=== PATIENT | female | born 1975 | race Hispanic/Latino ===

== ENCOUNTER 2021-01-28 17:25 | Outpatient (CLI) | payer BC | END 2021-01-28 17:26 | disposition home or self-care (01) | LOC: MADRAD 17:25 | PROVIDERS: ATTEND Family Medicine | DX: U07.1 COVID-19 (principal) | CPT/HCPCS: 71046 ==

== ENCOUNTER 2021-02-12 13:54 | Outpatient (CLI) | payer BC | END 2021-02-12 13:55 | disposition home or self-care (01) | LOC: MADLAB 13:54 → MADRAD 13:55 | PROVIDERS: ATTEND Family Medicine | DX: J12.82 Pneumonia due to coronavirus disease 2019 (principal); R91.8 Other nonspecific abnormal finding of lung field | CPT/HCPCS: 71046 ==

== ENCOUNTER 2021-03-06 16:42 | Outpatient (CLI) | payer BC | END 2021-03-06 16:43 | disposition home or self-care (01) | LOC: MADRAD 16:42 | PROVIDERS: ATTEND Family Medicine | DX: J12.82 Pneumonia due to coronavirus disease 2019 (principal) | CPT/HCPCS: 71046 ==